=== PATIENT | male | born 1995 | race Caucasian/White ===

== ENCOUNTER 2017-06-28 19:40 | Emergency (ER) | payer OTHER ==
--- NOTE | 2017-06-28 21:13 | RAD ---
CHEST TWO VIEW 06/28/17 HISTORY: Chest pain. COMPARISON: Chest radiograph 05/12/13. FINDINGS: Lungs are clear. No pneumothorax or effusion. The cardiac silhouette and mediastinal contours are wit hin normal limits. Gastric bubble is seen. IMPRESSION: No acute intrathoracic abnormality. POS: [id number]
== END 2017-06-28 21:55 | disposition home or self-care (01) ==
LOC: ERS 19:40
DX: R07.89 Other chest pain (principal)
CPT/HCPCS: 71046; 93005